=== PATIENT | male | born 1980 | race Asian ===

== ENCOUNTER 2016-12-01 12:58 | Emergency (ER) | payer OTHER ==
[~2016-12-01] VITALS: Ht 170.2 cm; Wt 82.2 kg
[2016-12-01 13:07] VITALS: BP 122/75
[2016-12-01] MEDS ORDERED: KETOROLAC 30 MG/1 ML IM ONE (14:00)
[2016-12-01] MEDS ORDERED: KETOROLAC 30 MG/1 ML ONE (14:15)
== END 2016-12-01 14:31 | disposition home or self-care (01) ==
LOC: ED 14:10
DX: M79.671 Pain in right foot (principal)
CPT/HCPCS: 73660; 96372; 99284; J1885